=== PATIENT | female | born 1945 | race Caucasian/White ===

== ENCOUNTER 2016-09-09 13:48 | Emergency (ER) | payer MEDICARE, BC ==
[2016-09-09 14:51] VITALS: BP 171/109
[2016-09-09] MEDS ORDERED: Bacitracin Oint 1 GM U/D Packet TOP ONE (15:44)
--- NOTE | 2016-09-09 15:50 | EDM.PDOC ---
ED HPI GENERAL MEDICAL PROBLEM - General Chief Complaint: Laceration Stated Complaint: FELL & HIT HEAD Time Seen by Provider: 09/09/16 14:49 Source of Information: Reports: Patient, Family, RN Notes Reviewed History Limitations: Reports: No Limitations - History of Present Illness INITIAL COMMENTS - FREE TEXT/NARRATIVE: 70-year-old female presents emergency department today with complaint of laceration above her left eye this happened when she states slipped in the kitchen accidentally caught the corner of her eye on the kitchen sink she denies any loss of consciousness no headache Left Face Pain Score (Numeric/FACES): 2 - Related Data Allergies Allergy/AdvReac Type Severity Reaction Status Date / Time acetaminophen Allergy Cannot Verified 09/09/16 14:59 [From Darvocet-N] Remember estrogens, conjugated Allergy Other Verified 09/09/16 14:59 [From Premarin] propoxyphene napsylate Allergy Cannot Verified 09/09/16 14:59 [From Darvocet-N] Remember Home Meds: Home Meds Aspirin [Ecotrin] 81 mg PO BEDTIME 06/06/14 [History] Cholecalciferol (Vitamin D3) [Vitamin D3] 1,000 units PO BEDTIME 06/06/14 [ History] Docusate Sodium [Colace] 100 mg PO BEDTIME 06/06/14 [History] Lisinopril 5 mg PO BEDTIME 06/06/14 [History] Magnesium Amino Acid Chelate [Magnesium] 100 mg PO BEDTIME 06/06/14 [History] Multivitamin with Minerals [Multiple Vitamin] 1 tab PO BEDTIME 06/06/14 [History ] Omeprazole [Prilosec] 20 mg PO BEDTIME 06/06/14 [History] Simvastatin [Zocor] 80 mg PO BEDTIME 06/06/14 [History] Solifenacin [Vesicare] 5 mg PO .QOD 06/06/14 [History] Magnesium Hydroxide [Milk of Magnesia] 30 ml PO DAILY PRN #2 ml 06/08/14 [Rx] Ibuprofen [Advil] 200 mg PO Q4HR PRN 02/04/16 [History] Past Medical History HEENT History: Reports: Impaired Vision Other HEENT History: wears glasses for reading Cardiovascular History: Reports: High Cholesterol, Hypertension Genitourinary History: Reports: Renal Calculus, Urinary Incontinence 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 History: Reports: Fracture Neurological History: Reports: Concussion - Infectious Disease History Infectious Disease History: Reports: Chicken Pox, Measles, Mumps, Rubella - Past Surgical History HEENT Surgical History: Reports: Cataract Surgery, Tonsillectomy, Other (See Below) GI Surgical History: Reports: Appendectomy, Colonoscopy, EGD Female Surgical History: Reports: Breast Biopsy Social & Family History - Family History Family Medical History: Noncontributory - Tobacco Use Smoking Status *Q: Never Smoker Second Hand Smoke Exposure: No - Caffeine Use Caffeine Use: Reports: Tea Caffeine Use Comment: sola - Alcohol Use Days Per Week of Alcohol Use: 2 Number of Drinks Per Day: 2 Total Drinks Per Week: 4 - Recreational Drug Use Recreational Drug Use: No ED ROS GENERAL - Review of Systems Review Of Systems: See Below Constitutional: Reports: No Symptoms Skin: Reports: Wound Neurological: Reports: No Symptoms ED EXAM, SKIN/RASH Exam: See Below Exam Limited By: No Limitations General Appearance: Alert, WD/WN, No Apparent Distress Eye Exam: Bilateral Eye: Normal Inspection, PERRL Respiratory/Chest: No Respiratory Distress Front/Back Body Diagram: 1 - 1.5 cm laceration above the left eye partially through the dermis ED SKIN PROCEDURES - Laceration/Wound Repair Left Face Lac/Wound length In cm: 1.5 Appearance: Subcutaneous Anesthetic Type: Local Local Anesthesia - Lidocaine (Xylocaine): 1% Plain Local Anesthetic Volume: 2cc Skin Prep: Saline Saline Irrigation (cc's): 30 Exploration/Debridement/Repair: Wound Explored, in a Bloodless Field, Explored to Base Closed with: Sutures Suture Size: other (6-0) # of Sutures: 1 Suture Type: Running Sterile Dressing Applied: Nurse Tetanus Status Addressed: Yes (2009) Complications: No Course - Vital Signs Last Recorded V/S: Last Vital Signs Temp 97.4 F 09/09/16 14:56 Pulse 81 09/09/16 14:56 Resp 16 09/09/16 14:56 BP 171/109 H 09/09/16 14:56 Pulse Ox 97 09/09/16 14:56 - Orders/Labs/Meds Orders: Active Orders 24 hr Category Date Time Status Bacitracin [Bacitracin Oint 1 GM] Med 09/09/16 15:44 Once 1 dose TOP ONETIME ONE Meds: Medications Discontinued Medications Generic Name Dose Route Start Last Admin Trade Name Martin PRN Reason Stop Dose Admin Lidocaine HCl 5 ml 09/09/16 15:10 Xylocaine-Mpf 1% INJECT 09/09/16 15:11 ONETIME ONE Departure - Departure Time of Disposition: 15:49 Disposition: Home, Self-Care 01 Condition: Good Clinical Impression: Laceration of eyebrow, left Qualifiers: Encounter type: initial encounter Qualified Code(s): S01.112A - Laceration without foreign body of left eyelid and periocular area, initial encounter - Discharge Information Forms: ED Department Discharge Additional Instructions: Suture removal 3-4 days, follow-up with primary care, follow wound care instruction sheet - My Orders Last 24 Hours: My Active Orders 09/09/16 15:44 Bacitracin [Bacitracin Oint 1 GM] 1 dose TOP ONETIME ONE - Assessment/Plan Last 24 Hours: My Active Orders 09/09/16 15:44 Bacitracin [Bacitracin Oint 1 GM] 1 dose TOP ONETIME ONE Plan: Assessment Acuity = acute Site and laterality = 1.5 cm laceration above the left eye Etiology = secondary to fall Manifestations = none Location of injury = Home Lab values = none Plan suture removal 3-4 days, follow up with primary care I did talk to her about the possibility of concussion further head injury made for CAT scan she declined at this time prefer to do watchful waiting Patient was in agreement with the plan all questions were answered, they were instructed to return to the emergency department or call for worsening symptoms. This note was dictated using [employer] voice recognition software please call with any questions.
== END 2016-09-09 17:15 | disposition home or self-care (01) ==
LOC: JP.ED 13:48
DX: S01.112A Laceration without foreign body of left eyelid and periocular area, initial encounter (principal); I10 Essential (primary) hypertension; Z88.8 Allergy status to other drugs, medicaments and biological substances; Z79.82 Long term (current) use of aspirin; E78.00 Pure hypercholesterolemia, unspecified; Z90.49 Acquired absence of other specified parts of digestive tract; Z98.890 Other specified postprocedural states; Z79.899 Other long term (current) drug therapy; W01.198A Fall on same level from slipping, tripping and stumbling with subsequent striking against other object, initial encounter
CPT/HCPCS: 12011; 99282-25; 99283-25

== ENCOUNTER 2016-09-13 09:38 | Emergency (ER) | payer MEDICARE, BC ==
[2016-09-13 09:55] VITALS: BP 134/78
--- NOTE | 2016-09-13 09:59 | EDM.PDOC ---
ED HPI GENERAL MEDICAL PROBLEM - General Chief Complaint: Wound Recheck Stated Complaint: NEEDS STITCHES TAKEN OUT Time Seen by Provider: 09/13/16 09:57 Source of Information: Reports: Patient History Limitations: Reports: No Limitations - History of Present Illness INITIAL COMMENTS - FREE TEXT/NARRATIVE: Sutures removed without incident the wound looks good - Related Data Allergies Allergy/AdvReac Type Severity Reaction Status Date / Time acetaminophen Allergy Cannot Verified 09/09/16 14:59 [From Darvocet-N] Remember estrogens, conjugated Allergy Other Verified 09/09/16 14:59 [From Premarin] propoxyphene napsylate Allergy Cannot Verified 09/09/16 14:59 [From Darvocet-N] Remember Home Meds: Home Meds Aspirin [Ecotrin] 81 mg PO BEDTIME 06/06/14 [History] Cholecalciferol (Vitamin D3) [Vitamin D3] 1,000 units PO BEDTIME 06/06/14 [ History] Docusate Sodium [Colace] 100 mg PO BEDTIME 06/06/14 [History] Lisinopril 5 mg PO BEDTIME 06/06/14 [History] Magnesium Amino Acid Chelate [Magnesium] 100 mg PO BEDTIME 06/06/14 [History] Multivitamin with Minerals [Multiple Vitamin] 1 tab PO BEDTIME 06/06/14 [History ] Omeprazole [Prilosec] 20 mg PO BEDTIME 06/06/14 [History] Simvastatin [Zocor] 80 mg PO BEDTIME 06/06/14 [History] Solifenacin [Vesicare] 5 mg PO .QOD 06/06/14 [History] Magnesium Hydroxide [Milk of Magnesia] 30 ml PO DAILY PRN #2 ml 06/08/14 [Rx] Ibuprofen [Advil] 200 mg PO Q4HR PRN 02/04/16 [History] Past Medical History HEENT History: Reports: Impaired Vision Other HEENT History: wears glasses for reading Cardiovascular History: Reports: High Cholesterol, Hypertension Genitourinary History: Reports: Renal Calculus, Urinary Incontinence 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 Neurological History: Reports: Concussion - Infectious Disease History Infectious Disease History: Reports: Chicken Pox, Measles, Mumps, Rubella - Past Surgical History HEENT Surgical History: Reports: Cataract Surgery, Tonsillectomy, Other (See Below) GI Surgical History: Reports: Appendectomy, Colonoscopy, EGD Female Surgical History: Reports: Breast Biopsy Social & Family History - Family History Family Medical History: Noncontributory - Tobacco Use Smoking Status *Q: Never Smoker Second Hand Smoke Exposure: No - Caffeine Use Caffeine Use: Reports: Tea Caffeine Use Comment: sola - Alcohol Use Days Per Week of Alcohol Use: 2 Number of Drinks Per Day: 2 Total Drinks Per Week: 4 - Recreational Drug Use Recreational Drug Use: No ED ROS GENERAL - Review of Systems Review Of Systems: ROS reveals no pertinent complaints other than HPI. ED EXAM, SKIN/RASH Exam: See Below Course - Vital Signs Last Recorded V/S: Last Vital Signs Temp 36.3 C 09/13/16 09:53 Pulse 74 09/13/16 09:53 Resp 16 09/13/16 09:53 BP 134/78 09/13/16 09:53 Pulse Ox 97 09/13/16 09:53 Departure - Departure Time of Disposition: 09:58 Disposition: Home, Self-Care 01 Condition: Good Clinical Impression: Visit for suture removal - Discharge Information Forms: ED Department Discharge
== END 2016-09-13 10:06 | disposition home or self-care (01) ==
LOC: JP.EDOUT 09:38
DX: Z48.02 Encounter for removal of sutures (principal); H54.7 Unspecified visual loss; E78.00 Pure hypercholesterolemia, unspecified; I10 Essential (primary) hypertension; Z98.890 Other specified postprocedural states; Z88.8 Allergy status to other drugs, medicaments and biological substances; Z79.82 Long term (current) use of aspirin; Z79.899 Other long term (current) drug therapy; Z87.442 Personal history of urinary calculi
CPT/HCPCS: 99282

== ENCOUNTER 2019-01-04 08:39 | Day surgery (SDC) | payer MEDICARE, BC ==
[2019-01-04] MEDS ORDERED: Dextrose 5%-Lactated Ringers 1,000 ML IV SCH (09:15)
[2019-01-04] MEDS ORDERED: fentaNYL 100 MCG/2 ML SDV ONE (09:44)
[2019-01-04] MEDS ORDERED: Midazolam 1 MG/ML 2 ML SDV ONE (09:44)
[2019-01-04] MEDS ORDERED: Propofol 200 MG/20 ML SDV ONE (09:44)
[2019-01-04] MEDS ORDERED: Glycopyrrolate 0.2 MG/ML 2 ML SDV IVPUSH ONE (10:00)
[2019-01-04 12:12] VITALS: BP 156/89; PULSE 65
--- NOTE | 2019-01-14 14:02 | OR ---
DATE OF PROCEDURE: 01/04/2019 SURGEON: Edmar Orona MD PREOPERATIVE DIAGNOSIS: Laryngopharyngeal dysphagia. POSTOPERATIVE DIAGNOSIS: Laryngopharyngeal dysphagia associated with mild narrowing at upper esophageal sphincter. OPERATIVE PROCEDURE: Upper GI endoscopy with dilation of esophagus (30018). ANESTHESIA: IV sedation. INDICATION FOR PROCEDURE: 73-year-old presenting with some dysphagia referable to the laryngopharyngeal area. The plan is to proceed with an upper GI endoscopy with dilation as indicated. Potential risks including bleeding and perforation were discussed, and the patient wishes to proceed. DETAILS OF PROCEDURE: The patient was taken to the operating room and placed in a left lateral decubitus position. IV sedation was administered, after which the upper GI endoscope was passed orally through the length of the esophagus into the stomach with retroflexion view of the fundus, thereafter through the pyloric channel into the proximal duodenum. Within the larynx and pharynx, there were no anatomic abnormalities noted and no significant inflammation present. As one passed through the upper esophageal sphincter, there was slight narrowing, more or less a web type finding, just below the upper esophageal sphincter. Diameter of this at best could be around 1.2 cm with the 1 cm scope just being passed through that area. Remainder of the esophagus, esophagogastric junction, gastric and duodenal exams were otherwise unremarkable. Scope was then withdrawn, after leaving the wire for the Savary dilator system in place. The esophagus was then dilated with the Savary dilators with a 42-Argentine followed by a 45- Argentine dilator. At 45-Argentine, the amount of resistance was such that we did not feel we should go higher than that, and both the guidewire and dilator were then removed and the procedure then concluded. Over time, if the patient has some improvement with her symptoms, based on today's dilation, and they subsequently recur, a repeat upper endoscopy could be undertaken with dilation as indicated. Otherwise, we will continue the patient on the omeprazole, as this appeared to be controlling the reflux fairly well, and there was no gross inflammation seen at the esophagogastric junction. Edmar Orona MD /[id number]
--- NOTE | 2019-01-16 12:53 | OR ---
DATE OF PROCEDURE: 01/04/2019 SURGEON: Edmar Orona MD PREOPERATIVE DIAGNOSIS: Laryngopharyngeal dysphagia. 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 OPERATIVE PROCEDURE: Upper gastrointestinal endoscopy with dilation of upper esophageal sphincter (04364). ANESTHESIA: IV sedation. INDICATION FOR PROCEDURE: This 73-year-old presenting with progressively worsening laryngopharyngeal dysphagia, presently is on omeprazole for gastroesophageal reflux disease long-term. Plan is to proceed with upper GI endoscopy with biopsies and/or dilation as indicated. Potential risks including bleeding and perforation were discussed, and the patient wishes to proceed. DETAILS OF PROCEDURE: The patient was taken to operating room, placed in a left lateral decubitus position. IV sedation was administered, after which the upper GI endoscope was passed orally through the length of esophagus into the stomach with retroflexion view of fundus and thereafter through the pyloric channel and into the proximal duodenum. Findings included normal hypopharynx and larynx. At the upper esophageal sphincter, the patient was noted to have a narrowing. The estimated size of this was around 1.2 cm, a 1 cm scope just barely passing through that area. Within the remainder of the esophageal length, the body was unremarkable. The patient did have a small hiatal hernia but no gross inflammation at the esophagogastric junction. There was no upward extension of the gastroesophageal junction mucosal line above the upper gastric folds and no plaquing or signs of neoplastic change. The remainder of the stomach and duodenum to the junction of the 3rd and 4th portions were unremarkable. At this point, the guidewire was passed into the stomach and the gastroscope removed leaving the guidewire in place. Savary dilators beginning with a 42-Wolof and then with a 45- Wolof were then placed. With each of these, there was actually palpable give of the web as one could feel the dilation occurring as the dilators passed through the area of the upper esophageal sphincter. At that point, the guidewire was removed along with the dilator and procedure then concluded. Going forward, if the patient's symptoms are not improved by today's dilation, an x-ray swallow study with speech pathology evaluation would be warranted. If the patient does improve with the present dilation but symptoms subsequently recur, then repeat upper endoscopy dilation could be done as needed. Edmar Orona MD /[id number]
== END 2019-01-04 12:14 | disposition home or self-care (01) ==
LOC: JP.SDS 08:39
PROVIDERS: ATTEND Surgery
DX: R13.13 Dysphagia, pharyngeal phase (principal); Q39.4 Esophageal web; I10 Essential (primary) hypertension; K21.9 Gastro-esophageal reflux disease without esophagitis
CPT/HCPCS: 43248; J2250; J2704; J3010; J3490; J7042

== ENCOUNTER 2019-02-23 06:27 | Day surgery (SDC) | payer MEDICARE, BC ==
[2019-02-23] MEDS ORDERED: Lactated Ringers 1,000 ML IV SCH (06:55)
[2019-02-23] MEDS ORDERED: Midazolam 1 MG/ML 2 ML SDV ONE (07:14)
[2019-02-23] MEDS ORDERED: Propofol 200 MG/20 ML SDV ONE (07:14)
[2019-02-23] MEDS ORDERED: fentaNYL 100 MCG/2 ML SDV ONE (07:14)
[2019-02-23 10:00] VITALS: BP 116/72; PULSE 56
--- NOTE | 2019-02-23 10:34 | OR ---
DATE OF PROCEDURE: 02/23/2019 SURGEON: Renzo Varner MD PREOPERATIVE DIAGNOSIS: History of colon polyps. POSTOPERATIVE DIAGNOSES: Unremarkable colonoscopy; history of colon polyps. PROCEDURE: Colonoscopy to the cecum. ANESTHESIA: IV anesthesia with monitored anesthesia care. INDICATION: This 73-year-old white female is referred for a colonoscopy because of a history of colon polyps. She says her last colonoscopic exam was done 3 years ago. I counseled her for the procedure, including risks and alternatives, and she gave her informed consent to proceed. DESCRIPTION OF PROCEDURE: The patient was placed in the left lateral decubitus position. IV anesthesia was administered by the Anesthesia Service. Time-out was held. A rectal exam was performed, which was unremarkable. The flexible video Olympus colonoscope was introduced through her anus, up her rectum, out her colon all the way to the cecum. Once the cecum was reached, the scope was slowly withdrawn, examining the mucosa throughout. No mucosal abnormalities were noted. The scope was retroflexed in the rectum with the distal rectum appearing unremarkable. The scope was straightened and removed. She tolerated the procedure well. Renzo Varner MD /[id number]
== END 2019-02-23 09:45 | disposition home or self-care (01) ==
LOC: JP.SDS 06:27
PROVIDERS: ATTEND Surgery
DX: Z12.11 Encounter for screening for malignant neoplasm of colon (principal); I10 Essential (primary) hypertension; Z86.010 Personal history of colon polyps; Z88.5 Allergy status to narcotic agent; Z88.8 Allergy status to other drugs, medicaments and biological substances
CPT/HCPCS: G0121; J2250; J2704; J3010; J7120

== ENCOUNTER 2019-04-08 07:47 | Day surgery (SDC) | payer MEDICARE, BC ==
[2019-04-08] MEDS ORDERED: Dextrose 5%-Lactated Ringers 1,000 ML IV SCH (08:30)
[2019-04-08] MEDS ORDERED: Propofol 200 MG/20 ML SDV ONE (09:49)
[2019-04-08] MEDS ORDERED: fentaNYL 100 MCG/2 ML SDV ONE (09:49)
[2019-04-08] MEDS ORDERED: Midazolam 1 MG/ML 2 ML SDV ONE (09:49)
[2019-04-08 11:22] VITALS: BP 152/91; PULSE 70
--- NOTE | 2019-04-14 13:59 | OR ---
DATE OF PROCEDURE: 04/08/2019 SURGEON: Edmar Orona MD PREOPERATIVE DIAGNOSIS: Dysphagia referable to proximal esophagus. POSTOPERATIVE DIAGNOSES: Severe inflammatory state of proximal esophagus with mucosal desquamation simply with air insufflation. OPERATIVE PROCEDURE: Esophagogastroduodenoscopy. ANESTHESIA: IV sedation. INDICATION FOR PROCEDURE: The patient presents with a history of some recurrent dysphagia referable to proximal esophagus. A little over a month ago, the patient underwent an upper endoscopy, at which time, the esophagus was noted to be somewhat inflamed, and there was proximally a stricture. This was treated with dilation with 54-Andorran dilator. The patient up until now has done well in terms of dysphagia. This has now returned to a significant extent. The patient is also in the midst of being worked up per her oral surgeon for what he suspects may be some connective tissue disorder affecting the mouth and oropharynx, with biopsies pending. The plan is to proceed with upper GI endoscopy with biopsies and/or dilation as indicated. Potential risks including bleeding and perforation were discussed, and the patient wishes to proceed. DETAILS OF PROCEDURE: The patient was taken to the operating room and placed in a left lateral decubitus position. IV sedation was administered, after which, the upper GI endoscope was passed orally through the length of the esophagus and into the stomach with retroflexion view of the fundus, and thereafter through the pyloric channel into the proximal duodenum. Findings included some mild redness in the hypopharynx and laryngeal areas. As one passed through the upper esophageal sphincter, this was somewhat edematous. A striking finding was the esophagus being diffusely reddened in appearance and with air insufflation the mucosa simply peeled away from the underlying tissue, this being a thin and almost [id number] layer of tissue that was desquamating. There was some narrowing of the upper esophagus as previously noted, but the scope easily passed through that area. The redness and tendency for the mucosa to peel away continued through the length of the esophagus. As one entered the stomach, there were few scattered small gastric fundic-type polyps related to the long- term use of proton pump inhibitors, but otherwise the stomach and duodenum, its junction of the third and fourth portions were unremarkable. At this point, biopsies were obtained from the esophagus, that included biopsies in areas where there was desquamated mucosa as well as some areas where the mucosa was still attached. Biopsies were fairly deep and it was felt that dilation at this point of the esophagus would be risky in terms of potential perforation. The procedure was then concluded. We will see the patient back next Thursday and await the path reports from the oral surgery specimens and make referrals as appropriate at that point. Hopefully, we will get the histologic report from the oral surgery biopsies by then and then make a referral to Gastroenterology and Rheumatology depending on specific findings of the histologic evaluation. Edmar Orona MD /[id number]
== END 2019-04-08 11:56 | disposition home or self-care (01) ==
LOC: JP.SDS 07:47
PROVIDERS: ATTEND Surgery
DX: K20.8 Other esophagitis (principal); K21.9 Gastro-esophageal reflux disease without esophagitis; I10 Essential (primary) hypertension
CPT/HCPCS: 43239; 88305; 88312; J2250; J2704; J3010; J7121

== ENCOUNTER 2022-04-29 13:42 | Emergency (ER) | payer MEDICARE, BC ==
[2022-04-29] MEDS ORDERED: Ketorolac 30 MG/ML SDV IM ONE (14:28)
[2022-04-29] MEDS ORDERED: oxyCODONE 5 MG Tab PO ONE (14:31)
[2022-04-29 16:04] VITALS: BP 176/79; PULSE 66
== END 2022-04-29 16:10 | disposition home or self-care (01) ==
LOC: JP.ED 13:42
DX: S32.030A Wedge compression fracture of third lumbar vertebra, initial encounter for closed fracture (principal); S32.050A Wedge compression fracture of fifth lumbar vertebra, initial encounter for closed fracture; E78.00 Pure hypercholesterolemia, unspecified; I10 Essential (primary) hypertension; Z88.8 Allergy status to other drugs, medicaments and biological substances; Z79.899 Other long term (current) drug therapy; X50.0XXA Overexertion from strenuous movement or load, initial encounter
CPT/HCPCS: 36415; 72110; 80048; 96372; 99283; A9270; J1885

== ENCOUNTER → 2023-09-25 | Day surgery (SDC) | payer MEDICARE, BC ==
[~2023-09-25] MED LIST: Propofol 200 MG/20 ML SDV ONE; fentaNYL 50 MCG/ML SDV ONE
[2023-09-25] MEDS: Sodium Chloride 0.9% 1,000 ML IV SCH (15:57)
== END ==
LOC: JP.SDS 08:26
PROVIDERS: ATTEND Surgery
DX: K22.70 Barrett's esophagus without dysplasia (principal); K22.89 Other specified disease of esophagus
CPT/HCPCS: 00731; 43239; 88305; J2704; J3010; J7030